=== PATIENT | female | born 1965 | race Caucasian/White ===

== ENCOUNTER 2017-07-20 01:54 | Emergency (ER) | payer SELFPAY ==
[~2017-07-20] VITALS: Ht 157.5 cm; Wt 85.0 kg
[~2017-07-20 01:54] MED LIST: CIPR500T4 PO
[2017-07-20 01:59] VITALS: BP 137/92; PULSE 94; RESP 16; TEMP 98.9; O2SAT 97
[2017-07-20 02:20] VITALS: BP 121/84; PULSE 88; RESP 16; O2SAT 98
[2017-07-20] MEDS ORDERED: PANTOPRAZOLE INJ 80 MG in SODIUM CHLORIDE 0.9% INJ 35 ML IV ONE (02:43)
[2017-07-20] MEDS ORDERED: SODIUM CHLORIDE 0.9% FLUSH 10 ML FLUSH IVF PRN (02:45)
[2017-07-20 03:25] VITALS: O2SAT 96
[2017-07-20 03:26] LABS: AUTOMATED NEUTROPHIL # 4.4 TH/MM3 (1.8-7.7); BASOPHIL # 0.1 TH/MM3 (0-0.2); BASOPHIL % 0.8 % (0.0-2.0); EOSINOPHIL # 0.2 TH/MM3 (0-0.4); EOSINOPHIL % 1.9 % (0.0-4.0); HEMATOCRIT 37.6 % (35.0-46.0); HEMO FLAGS DIFF FINAL; LYMPH % 36.8 % (9.0-44.0); MEAN CELL VOLUME 88.9 FL (80.0-100.0); MEAN CORPUSCULAR HEMOGLOBIN 30.6 PG (27.0-34.0); MEAN CORPUSCULAR HGB CONC 34.4 % (32.0-36.0); MONO % 6.2 % (0.0-8.0); NEUT % 54.3 % (16.0-70.0); PLATELET COUNT 233 TH/MM3 (150-450); RED BLOOD COUNT 4.23 MIL/MM3 (4.00-5.30); RED CELL DISTRIBUTION WIDTH 13.6 % (11.6-17.2); WHITE BLOOD COUNT 8.1 TH/MM3 (4.0-11.0)
[2017-07-20 03:33] LABS: APTT (PATIENT) 23.3 SEC (24.3-30.1); PROTHROMBIN TIME - PATIENT 9.9 SEC (9.8-11.6)
[2017-07-20 03:40] LABS: BLOOD, URINE NEG (NEG); COMMENT (UR) CULT NOT INDICATED; CULTURE IF INDICATED CULT NOT INDICATED; GLUCOSE,URINE 1000 mg/dL (NEG); KETONE, URINE TRACE mg/dL (NEG); MUCUS URINE FEW /lpf (OCC); NITRITE,URINE NEG (NEG); SQUAMOUS EPITHELIAL CELL URINE 2 /hpf (0-5); URINE COLOR YELLOW (YELLW/STRAW)
[2017-07-20 03:41] VITALS: BP 124/73; PULSE 76; RESP 16; O2SAT 96
[2017-07-20 03:44] LABS: ALT (GPT) 65 U/L (10-53); ANION GAP 10 MEQ/L (5-15); AST (GOT) 28 U/L (15-37); BICARBONATE 23.9 MEQ/L (21.0-32.0); BLOOD UREA NITROGEN 10 MG/DL (7-18); CHLORIDE 103 MEQ/L (98-107); GLOMERULAR FILTRATION RATE 80 ML/MIN (>89); POTASSIUM 3.9 MEQ/L (3.5-5.1); SODIUM (NA) 137 MEQ/L (136-145)
[2017-07-20 03:49] LABS: ALKALINE PHOSPHATASE 89 U/L (45-117); TOTAL BILIRUBIN ADULT 0.3 MG/DL (0.2-1.0)
[2017-07-20] MEDS ORDERED: IOHEXOL 350 MG/ML 10 ML VIAL (for RAD DIAG) IVCONTRAST ONE (04:28)
[2017-07-20 04:44] VITALS: BP 106/64; PULSE 77; RESP 16; O2SAT 96
--- NOTE | 2017-07-20 04:51 | PD ---
HPI Chief Complaint: Bleeding Time Seen by Provider: 02:08 Travel History International Travel<30 days: No Contact w/Intl Traveler<30days: No Traveled to known affect area: No History of Present Illness HPI Patient is a 52 year old female who comes in complaining of bleeding from her rectum. She says that when she wipes herself, she sees a large amount of clots. She also reports seeing blood in the toilet. This has been going on for about a week. She also has complaints of feeling "pinching" all over her body for the past 6 months. She also says she feels tired all the time. She has had some pain to the left side of her abdomen as well as her epigastric area. She denies nausea or vomiting. She denies palpitations or SOB. She denies dizziness. PFSH Past Medical History Diminished Hearing: Yes (DEAF) ?: Not Past Surgical History Hysterectomy: Yes (PARTIAL) Tonsillectomy: Yes Social History Alcohol Use: No Tobacco Use: No Substance Use: Yes (MARIJUANA) Allergies-Medications (Allergen,Severity, Reaction): Coded Allergies: Sulfa (Sulfonamide Antibiotics) (Unverified Allergy, Severe, 07/20/17) hives/sob Reported Meds & Prescriptions Reported Meds & Active Scripts Active Cipro (Ciprofloxacin HCl) 500 Mg Tab 500 Mg PO BID Review of Systems Except as stated in HPI: all other systems reviewed are Neg General / Constitutional: No: Fever, Chills Eyes: No: Blurred Vision HENT: No: Headaches, Lightheadedness Cardiovascular: Positive: Chest Pain or Discomfort Respiratory: No: Shortness of Breath Gastrointestinal: Positive: Abdominal Pain, Hematochezia, No: Nausea, Vomiting Genitourinary: No: Dysuria Musculoskeletal: No: Edema, Pain Skin: No Rash, No Hives, No Change in Pigmentation Neurologic: No: Weakness, Dizziness Physical Exam Narrative GENERAL: Awake and alert, in no acute distress. SKIN: Focused skin assessment warm/dry. HEAD: Atraumatic. Normocephalic. EYES: Pupils equal and round. No scleral icterus. No conjunctival pallor. ENT: Mucous membranes pink and moist. NECK: Trachea midline. No JVD. CARDIOVASCULAR: Regular rate and rhythm. No murmur appreciated. RESPIRATORY: No accessory muscle use. Clear to auscultation. Breath sounds equal bilaterally. GASTROINTESTINAL: Abdomen soft, non-tender, nondistended. Tender to palpation of the left side of the abdomen. RECTAL: No active bleed, nonthrombosed hemorrhoids. No fissures or masses. MUSCULOSKELETAL: No obvious deformities. No clubbing. No cyanosis. No edema. NEUROLOGICAL: Awake and alert. No obvious cranial nerve deficits. Motor grossly within normal limits. Normal speech. PSYCHIATRIC: Appropriate mood and affect; insight and judgment normal. Data Data Last Documented VS Vital Signs Date Time Temp Pulse Resp B/P (MAP) Pulse Ox O2 Delivery O2 Flow Rate FiO2 07/20/17 04:44 77 16 106/64 (78) 96 Room Air 07/20/17 01:59 98.9 Orders Orders Complete Blood Count With Diff (07/20/17 02:43) Comprehensive Metabolic Panel (07/20/17 02:43) Prothrombin Time / Inr (Pt) (07/20/17 02:43) Act Partial Throm Time (Ptt) (07/20/17 02:43) Urinalysis - C+S If Indicated (07/20/17 02:43) Type And Screen (07/20/17 02:43) Ecg Monitoring (07/20/17 02:43) Iv Access Insert/Monitor (07/20/17 02:43) Oximetry (07/20/17 02:43) Sodium Chloride 0.9% Flush (Ns Flush) (07/20/17 02:45) Sodium Chloride 0.9... W/Pantoprazole In (07/20/17 02:43) Troponin I (07/20/17 02:43) Ct Abd/Pel W Iv Contrast(Rout) (07/20/17 ) Iohexol 350 Inj (Omnipaque 350 Inj) (07/20/17 04:28) Sodium Chlor 0.9% 1000 Ml Inj (Ns 1000 M (07/20/17 05:00) Labs Laboratory Tests Test 07/20/17 02:56 07/20/17 03:23 White Blood Count 8.1 TH/MM3 Red Blood Count 4.23 MIL/MM3 Hemoglobin 12.9 GM/DL Hematocrit 37.6 % Mean Corpuscular Volume 88.9 FL Mean Corpuscular Hemoglobin 30.6 PG Mean Corpuscular Hemoglobin Concent 34.4 % Red Cell Distribution Width 13.6 % Platelet Count 233 TH/MM3 Mean Platelet Volume 9.0 FL Neutrophils (%) (Auto) 54.3 % Lymphocytes (%) (Auto) 36.8 % Monocytes (%) (Auto) 6.2 % Eosinophils (%) (Auto) 1.9 % Basophils (%) (Auto) 0.8 % Neutrophils # (Auto) 4.4 TH/MM3 Lymphocytes # (Auto) 3.0 TH/MM3 Monocytes # (Auto) 0.5 TH/MM3 Eosinophils # (Auto) 0.2 TH/MM3 Basophils # (Auto) 0.1 TH/MM3 CBC Comment DIFF FINAL Differential Comment Prothrombin Time 9.9 SEC Prothromb Time International Ratio 1.0 RATIO Activated Partial Thromboplast Time 23.3 SEC Blood Urea Nitrogen 10 MG/DL Creatinine 0.76 MG/DL Random Glucose 262 MG/DL Total Protein 7.7 GM/DL Albumin 4.0 GM/DL Calcium Level 8.7 MG/DL Alkaline Phosphatase 89 U/L Aspartate Amino Transf (AST/SGOT) 28 U/L Alanine Aminotransferase (ALT/SGPT) 65 U/L Total Bilirubin 0.3 MG/DL Sodium Level 137 MEQ/L Potassium Level 3.9 MEQ/L Chloride Level 103 MEQ/L Carbon Dioxide Level 23.9 MEQ/L Anion Gap 10 MEQ/L Estimat Glomerular Filtration Rate 80 ML/MIN Troponin I LESS THAN 0.02 NG/ML Urine Color YELLOW Urine Turbidity CLEAR Urine pH 5.0 Urine Specific [place] 1.037 Urine Protein NEG mg/dL Urine Glucose (UA) 1000 mg/dL Urine Ketones TRACE mg/dL Urine Occult Blood NEG Urine Nitrite NEG Urine Bilirubin NEG Urine Urobilinogen LESS THAN 2.0 MG/DL Urine Leukocyte Esterase NEG Urine WBC 1 /hpf Urine Squamous Epithelial Cells 2 /hpf Urine Mucus FEW /lpf Microscopic Urinalysis Comment CULT NOT INDICATED MDM Medical Decision Making Medical Screen Exam Complete: Yes Emergency Medical Condition: Yes Medical Record Reviewed: Yes Interpretation(s) ECG shows NSR at 77, no ST elevation or depression, normal intervals. Differential Diagnosis Bleeding hemorrhoid versus colitis versus diverticulitis versus diverticulosis Narrative Course Patient is a 52-year-old female comes in complaining of blood in her stool. Exam shows no active bleeding. IV established, labs sent. Hemoglobin is 12.9. Patient given a dose of Protonix. Labs do show that her blood sugars is 262. Patient is likely a diabetic, and this explains why she is feeling tired all the time. Patient advised she likely needs to be on medication for diabetes. Last 24 hours Impressions Abdomen/Pelvis CT 07/20/17 0000 Signed Impressions: Service Date/Time: Thursday, July 20, 2017 04:07 - CONCLUSION: 1. Bernarda appearance to the mesentery suggesting mesenteric inflammation. 2. Steatosis and hepatomegaly without solid lesion.. Duncan Francisco MD Patient informed of her results. Advised she should start Metformin. Given information about Diabetes. Blood likely from a hemorrhoid. Patient advised she does not have any bleeding currently. Advised she needs to follow-up with gastroenterology or colonoscopy. Advised to follow-up in the is a clinic for new onset diabetes. Advised to return to the ED as needed for any worsening symptoms. Diagnosis Primary Impression: Hemorrhoids Qualified Codes: K64.9 - Unspecified hemorrhoids Additional Impression: New onset type 2 diabetes mellitus Referrals: Lupillo Paz MD call for appointment [facility] call for appointment Patient Instructions: General Instructions, Hemorrhoids (ED), Type 2 Diabetes in Adults (ED) Additional Instructions: Drink plenty of water. Follow-up with gastroenterology and a primary care doctor. Return to the ED as needed for any worsening symptoms. Scripts Metformin (Metformin) 500 Mg Tab 500 MG PO DAILY for Blood Sugar Management, #14 TAB 0 Refills With a meal Prov: Linda Velasco MD 07/20/17 Disposition: 01 DISCHARGE HOME Condition: Stable Linda Velasco MD Jul 20, 2017 04:51
[2017-07-20] MEDS ORDERED: SODIUM CHLOR 0.9% 1000 ML INJ 1,000 ML IV ONE (05:00)
--- NOTE | 2017-07-20 05:13 | RADRPT ---
EXAM DATE/TIME: 07/20/2017 04:07 [facility] COMPARISON: No previous studies available for comparison. INDICATIONS : Abdomen pain. IV CONTRAST: 88 cc Omnipaque 350 (iohexol) IV ORAL CONTRAST: No oral contrast ingested. RADIATION DOSE: 6.97 CTDIvol (mGy) MEDICAL HISTORY : None SURGICAL HISTORY : Hysterectomy. ENCOUNTER: Initial ACUITY: 1 day PAIN SCALE: 5/10 LOCATION: Bilateral abdomen TECHNIQUE: Volumetric scanning of the abdomen and pelvis was performed. Using automated exposure control and ad justment of the mA and/or kV according to patient size, radiation dose was kept as low as reasonably achievable to obtain optimal diagnostic quality images. DICOM format image data is available electro nically for review and comparison. FINDINGS: LOWER LUNGS: The visualized lower lungs are clear. LIVER: Moderate hepatomegaly with AP dimension of the liver measuring 18 cm. Diffuse steatosis of the liver . 2.2 cm smooth margined hypodense lesion in the lateral segment of the left lobe, mean CT density o f 8 Hounsfield units, characteristic of a cyst. No solid lesions seen. No calcified gallstones. SPLEEN: Normal size without lesion. PANCREAS: Within normal limits. KIDNEYS: Normal in size and shape. There is no mass, stone or hydronephrosis. ADRENAL GLANDS: Within normal limits. VASCULAR: There is no aortic aneurysm. BOWEL/MESENTERY: No dilated loops of small or large bowel. The appendix is identified in the right lower quadrant has a normal appearance. There is minimal induration of the central mesenteric fat suggesting inflammat ory mesenteric process. ABDOMINAL WALL: Within normal limits. RETROPERITONEUM: There is no lymphadenopathy. BLADDER: No wall thickening or mass. REPRODUCTIVE: Within normal limits. INGUINAL: There is no lymphadenopathy or hernia. MUSCULOSKELETAL: Within normal limits for patient age. CONCLUSION: 1. Bernarda appearance to the mesentery suggesting mesenteric inflammation. 2. Steatosis and hepatomegaly without solid lesion.. Duncan Francisco MD on July 20, 2017 at 5:07 Board Certified Radiologist. This report was verified electronically.
[2017-07-20] MEDS ORDERED: METF500T PO (06:03)
[2017-07-20 06:38] VITALS: BP 119/81; PULSE 86; RESP 16
--- NOTE | 2017-07-20 15:08 | EKG ---
Date Performed: 07/20/2017 Time Performed: 02:43:04 PTAGE: 52 years EKG: Sinus rhythm POSSIBLE LEFT ATRIAL ENLARGEMENT BORDERLINE LEFT AXIS DEVIATION LOW QRS VOLTAGE IN PRECORDIAL LEADS BORDERLINE ECG NO PREVIOUS TRACING DOCTOR: Waldemar Villalobos Interpretating Date/Time 07/20/2017 15:08:09
== END 2017-07-20 06:45 | disposition home or self-care (01) ==
LOC: NEPE 01:54
DX: K64.9 Unspecified hemorrhoids (principal); E11.9 Type 2 diabetes mellitus without complications; K76.0 Fatty (change of) liver, not elsewhere classified; R16.0 Hepatomegaly, not elsewhere classified; Z88.2 Allergy status to sulfonamides
CPT/HCPCS: 74177; 80053; 81001; 84484; 85025; 85610; 85730; 86850; 86900; 86901; 93005; 96365; 99285; C9113; J7030; Q9967

== ENCOUNTER 2017-08-09 12:50 | Emergency (ER) | payer SELFPAY ==
[~2017-08-09 12:50] MED LIST changes: +METF500T PO
[2017-08-09 12:52] VITALS: BP 127/91; PULSE 77; RESP 13; TEMP 98.9; O2SAT 98
[2017-08-09 13:31] LABS: BASOPHIL % 0.6 % (0.0-2.0); EOSINOPHIL # 0.1 TH/MM3 (0-0.4); EOSINOPHIL % 1.7 % (0.0-4.0); HEMATOCRIT 40.9 % (35.0-46.0); HEMOGLOBIN 13.2 GM/DL (11.6-15.3); LYMPH % 25.6 % (9.0-44.0); LYMPHOCYTE # 1.9 TH/MM3 (1.0-4.8); MEAN CELL VOLUME 90.3 FL (80.0-100.0); MEAN CORPUSCULAR HEMOGLOBIN 29.1 PG (27.0-34.0); MEAN CORPUSCULAR HGB CONC 32.2 % (32.0-36.0); MEAN PLATELET VOLUME 8.8 FL (7.0-11.0); MONO % 4.8 % (0.0-8.0); MONOCYTE # 0.4 TH/MM3 (0-0.9); NEUT % 67.3 % (16.0-70.0); PLATELET COUNT 255 TH/MM3 (150-450); RED BLOOD COUNT 4.53 MIL/MM3 (4.00-5.30); RED CELL DISTRIBUTION WIDTH 14.1 % (11.6-17.2); WHITE BLOOD COUNT 7.5 TH/MM3 (4.0-11.0)
[2017-08-09 13:41] LABS: BILIRUBIN, URINE NEG (NEG); BLOOD, URINE NEG (NEG); GLUCOSE,URINE 1000 mg/dL (NEG); KETONE, URINE 10 mg/dL (NEG); NITRITE,URINE NEG (NEG); SQUAMOUS EPITHELIAL CELL URINE 1 /hpf (0-5); URINE COLOR LIGHT-YELLOW (YELLW/STRAW); URINE LEUKOCYTE ESTERASE NEG (NEG)
[2017-08-09 13:43] LABS: ALKALINE PHOSPHATASE 95 U/L (45-117); TOTAL BILIRUBIN ADULT 0.2 MG/DL (0.2-1.0); TOTAL PROTEIN 7.4 GM/DL (6.4-8.2)
[2017-08-09 13:48] LABS: ALBUMIN 3.7 GM/DL (3.4-5.0); ALT (GPT) 80 U/L (10-53); AST (GOT) 43 U/L (15-37); BICARBONATE 21.8 MEQ/L (21.0-32.0); BLOOD UREA NITROGEN 9 MG/DL (7-18); CALCIUM 8.7 MG/DL (8.5-10.1); CHLORIDE 104 MEQ/L (98-107); CREATININE 0.82 MG/DL (0.50-1.00); GLOMERULAR FILTRATION RATE 73 ML/MIN (>89); GLUCOSE,RANDOM 290 MG/DL (74-106); LIPASE 193 U/L (73-393); SODIUM (NA) 136 MEQ/L (136-145)
--- NOTE | 2017-08-09 14:32 | PD ---
HPI Chief Complaint: Flank/Kidney Pain Time Seen by Provider: 14:21 Travel History International Travel<30 days: No Contact w/Intl Traveler<30days: No Traveled to known affect area: No History of Present Illness HPI 52-year-old female presents the emergency department with recurrent right flank and abdominal pain over the past 2 weeks. Patient was seen 2 weeks ago, and felt to have hemorrhoids, as well as new onset diabetes. Patient relates that she started taking metformin 500 mg daily which seemed to cause abdominal discomfort and cramping. Patient denies any significant fever, urinary symptoms, burning with urination, nausea, vomiting, or changes in her bowels. She states she stopped taking the metformin when she went to [place], and the symptoms improved, she started taking her medication again recently and her symptoms recurred. Pain is about a 6 out of 10. It is not worse with movement. It is not significantly worse with food. Patient's only abdominal surgery is a partial hysterectomy. She still has her appendix and gallbladder. She is allergic to sulfa. [facility] Past Medical History Diminished Hearing: Yes (DEAF) Past Surgical History Hysterectomy: Yes Tonsillectomy: Yes Social History Alcohol Use: No Tobacco Use: No Substance Use: Yes (MARIJUANA) Allergies-Medications (Allergen,Severity, Reaction): Coded Allergies: Sulfa (Sulfonamide Antibiotics) (Verified Allergy, Severe, 08/09/17) hives/sob Reported Meds & Prescriptions Reported Meds & Active Scripts Active Metformin (Metformin HCl) 500 Mg Tab 500 Mg PO DAILY With a meal Review of Systems Except as stated in HPI: all other systems reviewed are Neg General / Constitutional: No: Fever, Chills Eyes: No: Visual changes HENT: No: Headaches Cardiovascular: No: Chest Pain or Discomfort Respiratory: No: Shortness of Breath Gastrointestinal: Positive: Abdominal Pain, No: Nausea, Vomiting, Diarrhea, Constipation, Indigestion, Dysphagia, Loss of Appetite Genitourinary: No: Dysuria Musculoskeletal: No: Pain Skin: No Rash Neurologic: No: Weakness Psychiatric: No: Depression Endocrine: No: Polydipsia Hematologic/Lymphatic: No: Easy Bruising Physical Exam Narrative GENERAL: Patient appears in no acute distress. She is able sore to the room. She is able to sit and lay down without difficulty. SKIN: Warm and dry. Color. Normal turgor. No rash. HEAD: Atraumatic. Normocephalic. EYES: Pupils equal and round. No scleral icterus. No injection or drainage. ENT: No nasal bleeding or discharge. Mucous membranes pink and moist. Pharynx is clear. Airway is patent. NECK: Trachea midline. Supple and nontender. CARDIOVASCULAR: Regular rate and rhythm. RESPIRATORY: No accessory muscle use. Clear to auscultation. Breath sounds equal bilaterally. GASTROINTESTINAL: Abdomen soft, mild nonspecific tenderness in the right abdominal area, without specific point tenderness. No McBurney's point. Nondistended. Hepatic and splenic margins not palpable. No CVA tenderness to palpation. MUSCULOSKELETAL: Extremities without clubbing, cyanosis, or edema. No obvious deformities. NEUROLOGICAL: Awake and alert. No obvious cranial nerve deficits. Motor grossly within normal limits. Five out of 5 muscle strength in the arms and legs. Normal speech. PSYCHIATRIC: Appropriate mood and affect; insight and judgment normal. Data Data Last Documented VS Vital Signs Date Time Temp Pulse Resp B/P (MAP) Pulse Ox O2 Delivery O2 Flow Rate FiO2 08/09/17 14:56 67 15 97 Room Air 08/09/17 12:52 98.9 Orders Orders Complete Blood Count With Diff (08/09/17 13:03) Comprehensive Metabolic Panel (08/09/17 13:03) Urinalysis - C+S If Indicated (08/09/17 13:03) Lipase (08/09/17 13:03) Iv Access Insert/Monitor (08/09/17 14:50) Ecg Monitoring (08/09/17 14:50) Oximetry (08/09/17 14:50) Sodium Chloride 0.9% Flush (Ns Flush) (08/09/17 15:00) Ketorolac Inj (Toradol Inj) (08/09/17 15:00) Lactic Acid (08/09/17 14:55) Ct Abd/Pel W/O Iv Contrast (08/09/17 15:21) Labs Laboratory Tests Test 08/09/17 13:10 08/09/17 13:20 08/09/17 15:00 Urine Color LIGHT-YELLOW Urine Turbidity CLEAR Urine pH 5.0 Urine Specific [place] 1.029 Urine Protein NEG mg/dL Urine Glucose (UA) 1000 mg/dL Urine Ketones 10 mg/dL Urine Occult Blood NEG Urine Nitrite NEG Urine Bilirubin NEG Urine Urobilinogen LESS THAN 2.0 MG/DL Urine Leukocyte Esterase NEG Urine RBC LESS THAN 1 /hpf Urine WBC LESS THAN 1 /hpf Urine Squamous Epithelial Cells 1 /hpf Microscopic Urinalysis Comment CULT NOT INDICATED White Blood Count 7.5 TH/MM3 Red Blood Count 4.53 MIL/MM3 Hemoglobin 13.2 GM/DL Hematocrit 40.9 % Mean Corpuscular Volume 90.3 FL Mean Corpuscular Hemoglobin 29.1 PG Mean Corpuscular Hemoglobin Concent 32.2 % Red Cell Distribution Width 14.1 % Platelet Count 255 TH/MM3 Mean Platelet Volume 8.8 FL Neutrophils (%) (Auto) 67.3 % Lymphocytes (%) (Auto) 25.6 % Monocytes (%) (Auto) 4.8 % Eosinophils (%) (Auto) 1.7 % Basophils (%) (Auto) 0.6 % Neutrophils # (Auto) 5.0 TH/MM3 Lymphocytes # (Auto) 1.9 TH/MM3 Monocytes # (Auto) 0.4 TH/MM3 Eosinophils # (Auto) 0.1 TH/MM3 Basophils # (Auto) 0.0 TH/MM3 CBC Comment DIFF FINAL Differential Comment Blood Urea Nitrogen 9 MG/DL Creatinine 0.82 MG/DL Random Glucose 290 MG/DL Total Protein 7.4 GM/DL Albumin 3.7 GM/DL Calcium Level 8.7 MG/DL Alkaline Phosphatase 95 U/L Aspartate Amino Transf (AST/SGOT) 43 U/L Alanine Aminotransferase (ALT/SGPT) 80 U/L Total Bilirubin 0.2 MG/DL Sodium Level 136 MEQ/L Potassium Level 4.0 MEQ/L Chloride Level 104 MEQ/L Carbon Dioxide Level 21.8 MEQ/L Anion Gap 10 MEQ/L Estimat Glomerular Filtration Rate 73 ML/MIN Lipase 193 U/L Lactic Acid Level 1.6 mmol/L [facility] Medical Decision Making Medical Screen Exam Complete: Yes Emergency Medical Condition: Yes Medical Record Reviewed: Yes Differential Diagnosis Abdominal pain. Medication reaction. Mesenteric inflammation seen on CT a previous visit. Gallbladder disease. Hepatitis. Renal colic. Narrative Course Labs ordered and triage including CBC, CMP, and urinalysis are all markedly normal except for random glucose of 290, and slightly elevated LFTs AST of 43, ALT 80. Urinalysis shows greater than 1000 glucose, and 10 ketones. Patient discussed with Dr. Ames who examines the patient as well. Lactic acid is ordered as well. This was normal. CT of the abdomen showed a nonobstructing stone in the right kidney but otherwise no significant findings. Patient is felt stable for discharge home. Patient is recommended to continue her Glucophage 500 mg daily as previously prescribed. Pain is felt to be more muscle skeletal versus a medication reaction. She has trialed on meloxicam 7.5 mg twice a day when necessary pain. Patient is to follow-up with a local primary care physician as soon as possible to ensure improvement, and to monitor improvement in her type 2 diabetes.. GI consult might be warranted if symptoms continue. Diagnosis Primary Impression: Abdominal pain Qualified Codes: R10.11 - Right upper quadrant pain Referrals: [facility] Primary Care PO Patient Instructions: Abdominal Pain (ED), General Instructions Additional Instructions: CT of the abdomen showed a nonobstructing stone in the right kidney but otherwise no significant findings. Patient is felt stable for discharge home. Patient is recommended to continue her Glucophage 500 mg daily as previously prescribed. Pain is felt to be more muscle skeletal versus a medication reaction. She has trialed on meloxicam 7.5 mg twice a day when necessary pain. Patient is to follow-up with a local primary care physician as soon as possible to ensure improvement, and to monitor improvement in her type 2 diabetes.. GI consult might be warranted if symptoms continue. Med/Other Pt SpecificInfo: Prescription(s) given Condition: Stable Nikhil Negron Aug 09, 2017 14:32
[2017-08-09 14:56] VITALS: PULSE 67; RESP 15; O2SAT 97
[2017-08-09] MEDS ORDERED: SODIUM CHLORIDE 0.9% FLUSH 10 ML FLUSH IV FLUSH PRN (15:00)
[2017-08-09] MEDS ORDERED: KETOROLAC TROMETHAMINE 30 MG/ML (IVP) VIAL IVP ONE (15:00)
--- NOTE | 2017-08-09 16:14 | RADRPT ---
EXAM DATE/TIME: 08/09/2017 15:44 [facility] COMPARISON: No previous studies available for comparison. INDICATIONS : Right flank plain ORAL CONTRAST: No oral contrast ingested. RADIATION DOSE: 14.39 CTDIvol (mGy) MEDICAL HISTORY : Diabetes SURGICAL HISTORY : Tonsillectomy. Hysterectomy. ENCOUNTER: Initial ACUITY: 2 weeks PAIN SCALE: 10/10 LOCATION: Right flank TECHNIQUE: Volumetric scanning of the abdomen and pelvis was performed. Using automated exposure control and ad justment of the mA and/or kV according to patient size, radiation dose was kept as low as reasonably achievable to obtain optimal diagnostic quality images. DICOM format image data is available electro nically for review and comparison. FINDINGS: CT Abdomen: The spleen, pancreas, left kidney, adrenals are unremarkable. Approximate 3-4 mm nonobstr ucting stone is present in the right kidney. There is no evidence for any appreciable pathological ad enopathy, free fluid, or bowel obstruction. There is no ureteral stone and there is no hydronephrosis on either side. There is slight lingular atelectasis and/or infiltrate. The liver is fatty without focal lesions or technique. CT pelvis: There is an approximate 2.3 cm simple cyst in the left ovary. CONCLUSION: 1. Fatty liver. 2. Tiny nonobstructing stone in the right kidney. 3. Lingula atelectasis and/or infiltrate. Hayden Manzano MD on August 09, 2017 at 16:07 Board Certified Radiologist. This report was verified electronically.
[2017-08-09] MEDS ORDERED: MELO7.5T27 PO (16:35)
--- NOTE | 2017-08-09 16:37 | PD ---
Data Data Last Documented VS Vital Signs Date Time Temp Pulse Resp B/P (MAP) Pulse Ox O2 Delivery O2 Flow Rate FiO2 08/09/17 14:56 67 15 97 Room Air 08/09/17 12:52 98.9 Orders Orders Complete Blood Count With Diff (08/09/17 13:03) Comprehensive Metabolic Panel (08/09/17 13:03) Urinalysis - C+S If Indicated (08/09/17 13:03) Lipase (08/09/17 13:03) Iv Access Insert/Monitor (08/09/17 14:50) Ecg Monitoring (08/09/17 14:50) Oximetry (08/09/17 14:50) Sodium Chloride 0.9% Flush (Ns Flush) (08/09/17 15:00) Ketorolac Inj (Toradol Inj) (08/09/17 15:00) Lactic Acid (08/09/17 14:55) Ct Abd/Pel W/O Iv Contrast (08/09/17 15:21) Labs Laboratory Tests Test 08/09/17 13:10 08/09/17 13:20 08/09/17 15:00 Urine Color LIGHT-YELLOW Urine Turbidity CLEAR Urine pH 5.0 Urine Specific [place] 1.029 Urine Protein NEG mg/dL Urine Glucose (UA) 1000 mg/dL Urine Ketones 10 mg/dL Urine Occult Blood NEG Urine Nitrite NEG Urine Bilirubin NEG Urine Urobilinogen LESS THAN 2.0 MG/DL Urine Leukocyte Esterase NEG Urine RBC LESS THAN 1 /hpf Urine WBC LESS THAN 1 /hpf Urine Squamous Epithelial Cells 1 /hpf Microscopic Urinalysis Comment CULT NOT INDICATED White Blood Count 7.5 TH/MM3 Red Blood Count 4.53 MIL/MM3 Hemoglobin 13.2 GM/DL Hematocrit 40.9 % Mean Corpuscular Volume 90.3 FL Mean Corpuscular Hemoglobin 29.1 PG Mean Corpuscular Hemoglobin Concent 32.2 % Red Cell Distribution Width 14.1 % Platelet Count 255 TH/MM3 Mean Platelet Volume 8.8 FL Neutrophils (%) (Auto) 67.3 % Lymphocytes (%) (Auto) 25.6 % Monocytes (%) (Auto) 4.8 % Eosinophils (%) (Auto) 1.7 % Basophils (%) (Auto) 0.6 % Neutrophils # (Auto) 5.0 TH/MM3 Lymphocytes # (Auto) 1.9 TH/MM3 Monocytes # (Auto) 0.4 TH/MM3 Eosinophils # (Auto) 0.1 TH/MM3 Basophils # (Auto) 0.0 TH/MM3 CBC Comment DIFF FINAL Differential Comment Blood Urea Nitrogen 9 MG/DL Creatinine 0.82 MG/DL Random Glucose 290 MG/DL Total Protein 7.4 GM/DL Albumin 3.7 GM/DL Calcium Level 8.7 MG/DL Alkaline Phosphatase 95 U/L Aspartate Amino Transf (AST/SGOT) 43 U/L Alanine Aminotransferase (ALT/SGPT) 80 U/L Total Bilirubin 0.2 MG/DL Sodium Level 136 MEQ/L Potassium Level 4.0 MEQ/L Chloride Level 104 MEQ/L Carbon Dioxide Level 21.8 MEQ/L Anion Gap 10 MEQ/L Estimat Glomerular Filtration Rate 73 ML/MIN Lipase 193 U/L Lactic Acid Level 1.6 mmol/L MDM Supervised Visit with DIMA: Yes Narrative Course The history, exam, and medical decision-making in the associated midlevel provider note were completed with my assistance. I reviewed and agree with the findings presented. I attest that I had a [id number] encounter with the patient on the same day, and personally performed and documented my assessment and findings in the medical record. *My assessment and Findings: This is a 52-year-old female who presents to the emergency department with right sided abdominal pain that radiates to the back. She describes it as a burning and numbness. History was obtained via video director data processing. She has no other constitutional complaints. Labs are reassuring. She says the pain is gotten much worse and she was prescribed metformin on her last visit for her diabetes. CT scan was repeated as the patient says that this pain is new. It Demonstrates no etiology of her symptoms. Her exam is very benign. I suspect her pain may be radicular from her thoracic spine as her abdomen is not very tender. I also recommended that she have an outpatient colonoscopy done as she had some mesenteric inflammation on her last CT scan. Patient will be discharged home and I think she is appropriate for outpatient follow-up. Diagnosis Primary Impression: Abdominal pain Qualified Codes: R10.11 - Right upper quadrant pain Referrals: [facility] PO Patient Instructions: General Instructions, Abdominal Pain (ED) Additional Instruction: CT of the abdomen showed a nonobstructing stone in the right kidney but otherwise no significant findings. Patient is felt stable for discharge home. Patient is recommended to continue her Glucophage 500 mg daily as previously prescribed. Pain is felt to be more muscle skeletal versus a medication reaction. She has trialed on meloxicam 7.5 mg twice a day when necessary pain. Patient is to follow-up with a local primary care physician as soon as possible to ensure improvement, and to monitor improvement in her type 2 diabetes.. GI consult might be warranted if symptoms continue. Condition: Stable Shanice Ames MD Aug 09, 2017 16:37
== END 2017-08-09 16:57 | disposition home or self-care (01) ==
LOC: NEPD 12:50
DX: R10.11 Right upper quadrant pain (principal); E11.9 Type 2 diabetes mellitus without complications; Z79.84 Long term (current) use of oral hypoglycemic drugs
CPT/HCPCS: 74176; 80053; 81001; 83605; 83690; 85025; 96374; 99285; J1885

== ENCOUNTER 2017-08-22 01:59 | Emergency (ER) | payer SELFPAY ==
[~2017-08-22] VITALS: Ht 157.5 cm; Wt 80.0 kg
[~2017-08-22 01:59] MED LIST changes: -CIPR500T4 PO; +MELO7.5T27 PO
[2017-08-22 02:01] VITALS: BP 135/97; PULSE 66; RESP 16; TEMP 98.7; O2SAT 98
[2017-08-22 02:56] LABS: AUTOMATED NEUTROPHIL # 4.9 TH/MM3 (1.8-7.7); BASOPHIL # 0.1 TH/MM3 (0-0.2); BASOPHIL % 1.1 % (0.0-2.0); EOSINOPHIL # 0.1 TH/MM3 (0-0.4); EOSINOPHIL % 1.5 % (0.0-4.0); HEMATOCRIT 39.1 % (35.0-46.0); HEMOGLOBIN 13.2 GM/DL (11.6-15.3); LYMPH % 28.7 % (9.0-44.0); LYMPHOCYTE # 2.3 TH/MM3 (1.0-4.8); MEAN CELL VOLUME 88.3 FL (80.0-100.0); MEAN CORPUSCULAR HEMOGLOBIN 29.9 PG (27.0-34.0); MEAN CORPUSCULAR HGB CONC 33.9 % (32.0-36.0); MEAN PLATELET VOLUME 8.4 FL (7.0-11.0); MONO % 7.3 % (0.0-8.0); MONOCYTE # 0.6 TH/MM3 (0-0.9); NEUT % 61.4 % (16.0-70.0); PLATELET COUNT 269 TH/MM3 (150-450); RED BLOOD COUNT 4.43 MIL/MM3 (4.00-5.30); RED CELL DISTRIBUTION WIDTH 13.7 % (11.6-17.2)
--- NOTE | 2017-08-22 03:05 | RADRPT ---
EXAM DATE/TIME: 08/22/2017 02:49 [place] COMPARISON: No previous studies available for comparison. INDICATIONS : Short of breath. MEDICAL HISTORY : None. SURGICAL HISTORY : None. ENCOUNTER: Initial ACUITY: 1 day PAIN SCORE: 0/10 LOCATION: Bilateral chest FINDINGS: A single view of the chest demonstrates the lungs to be symmetrically aerated without evidence of mas s, infiltrate or effusion. The cardiomediastinal contours are unremarkable. Osseous structures are intact. CONCLUSION: No acute disease. Chuckie Mcadams MD on August 22, 2017 at 3:02 Board Certified Radiologist. This report was verified electronically.
[2017-08-22 03:08] VITALS: BP 180/89; PULSE 58; RESP 15; O2SAT 98
[2017-08-22 03:15] LABS: ALBUMIN 3.6 GM/DL (3.4-5.0); ALT (GPT) 46 U/L (10-53); AST (GOT) 23 U/L (15-37); BICARBONATE 23.6 MEQ/L (21.0-32.0); BLOOD UREA NITROGEN 14 MG/DL (7-18); C-REACTIVE PROTEIN 0.73 MG/DL (0.00-0.30); CALCIUM 8.2 MG/DL (8.5-10.1); CHLORIDE 105 MEQ/L (98-107); CREATININE 0.77 MG/DL (0.50-1.00); GLOMERULAR FILTRATION RATE 79 ML/MIN (>89); GLUCOSE,RANDOM 210 MG/DL (74-106); LIPASE 280 U/L (73-393); SODIUM (NA) 137 MEQ/L (136-145)
[2017-08-22 03:16] LABS: ALKALINE PHOSPHATASE 73 U/L (45-117); TOTAL BILIRUBIN ADULT 0.1 MG/DL (0.2-1.0); TOTAL PROTEIN 7.3 GM/DL (6.4-8.2)
--- NOTE | 2017-08-22 03:20 | PD ---
HPI Chief Complaint: Abdominal Pain Time Seen by Provider: 02:24 Travel History International Travel<30 days: No Contact w/Intl Traveler<30days: No Traveled to known affect area: No History of Present Illness HPI The patient is a 52 year old female who presents to the [facility] emergency department with a history of right-sided flank pain that radiates down into the right lower quadrant of the abdomen and began reportedly a month ago. The patient reports that the pain seems to come and go, however it worsened again last night. She reports that she has associated dysuria with urinary frequency and urgency. She denies having any known fevers. She reports having nausea without vomiting. She denies having any diarrhea. The patient has a history of being diagnosed with diabetes, however she ran out of her Glucophage and has not been on this recently. The patient reports that she does have a history of kidney stones. The patient reports that she's had 2 CAT scans done recently related to the symptoms, the most recent was in August of this year done at this facility. She denies having a primary care physician. Otherwise on review of systems, she denies having any cough, congestion, neck pain, chest pain, shortness of breath, abdominal pain, diarrhea, or neurologic symptoms. [facility] Past Medical History Narrative Medical The patient's past medical history is significant for diabetes, reported history of kidney stones, history of being deaf. Diabetes: Yes Patient Takes Glucophage: No Diminished Hearing: Yes (DEAF) Reproductive: Yes Influenza Vaccination: No ?: Not Past Surgical History Narrative Surgical The patient's past surgical history is significant for tonsillectomy and a hysterectomy. Hysterectomy: Yes Tonsillectomy: Yes Social History Alcohol Use: No Tobacco Use: No Substance Use: Yes (MARIJUANA) Allergies-Medications (Allergen,Severity, Reaction): Coded Allergies: Sulfa (Sulfonamide Antibiotics) (Verified Allergy, Severe, 08/22/17) hives/sob Reported Meds & Prescriptions Reported Meds & Active Scripts Active Meloxicam 7.5 Mg Tab 7.5 Mg PO BID Metformin (Metformin HCl) 500 Mg Tab 500 Mg PO DAILY With a meal Review of Systems Except as stated in HPI: all other systems reviewed are Neg General / Constitutional: No: Fever, Chills Eyes: No: Visual changes HENT: No: Headaches Cardiovascular: No: Chest Pain or Discomfort Respiratory: No: Shortness of Breath Gastrointestinal: Positive: Nausea, Abdominal Pain, No: Vomiting, Diarrhea, Changes in Bowel Habits, Indigestion, Loss of Appetite Genitourinary: Positive: Urgency, Frequency, Dysuria, Flank Pain Musculoskeletal: No: Pain Skin: No Rash Neurologic: No: Weakness, Focal Abnormalities, Change in Mentation, Slurred Speech, Sensory Disturbance Psychiatric: No: Depression Endocrine: No: Polydipsia Hematologic/Lymphatic: No: Easy Bruising Physical Exam Narrative General: The patient is a well-developed well-nourished female in no acute distress. Head and Neck exam: Head is normocephalic atraumatic. Eyes: EOMI, pupils are equal round and reactive to light. Nose: Midline septum with pink mucous membranes Mouth: Dentition unremarkable. Moist mucus membranes. Posterior oropharynx is not erythematous. No tonsillar hypertrophy. Uvula midline. Airway patent. Neck: No palpable lymphadenopathy. No nuchal rigidity. No thyromegaly. Cardiovascular: Regular rate and rhythm without murmurs, gallops, or rubs. Lungs: Clear to auscultation bilaterally. No wheezes, rhonchi, or rales. Abdomen: Soft, without tenderness to palpation in all 4 quadrants of the abdomen. No guarding, rebound, or rigidity. Normal bowel sounds are audible. No tenderness on palpation of McBurney's point. Negative Mcpherson sign. Extremities: No clubbing, cyanosis, or edema. 2+ pulses in all 4 extremities. No calf tenderness on palpation. Back: No spinous process tenderness to palpation. The patient has no CVA tenderness on palpation. Neurologic Exam: Grossly nonfocal. Skin Exam: No rash noted. Intact skin that is warm and dry. Data Data Last Documented VS Vital Signs Date Time Temp Pulse Resp B/P (MAP) Pulse Ox O2 Delivery O2 Flow Rate FiO2 08/22/17 05:33 53 17 165/87 (113) 96 Room Air 08/22/17 02:01 98.7 Orders Orders Complete Blood Count With Diff (08/22/17 02:25) Comprehensive Metabolic Panel (08/22/17 02:25) C-Reactive Protein (Crp) (08/22/17 02:25) Lipase (08/22/17 02:25) Chest, Single Ap (08/22/17 02:25) Iv Access Insert/Monitor (08/22/17 02:25) Ecg Monitoring (08/22/17 02:25) Oximetry (08/22/17 02:25) Urinalysis - C+S If Indicated (08/22/17 04:31) Ketorolac Inj (Toradol Inj) (08/22/17 05:00) Phenazopyridine (Pyridium) (08/22/17 05:00) Sodium Chlor 0.9% 1000 Ml Inj (Ns 1000 M (08/22/17 05:00) Ceftriaxone Inj (Rocephin Inj) (08/22/17 05:00) Ondansetron Inj (Zofran Inj) (08/22/17 05:30) Ed Discharge Order (08/22/17 05:47) Labs Laboratory Tests Test 08/22/17 02:40 08/22/17 04:00 White Blood Count 8.0 TH/MM3 Red Blood Count 4.43 MIL/MM3 Hemoglobin 13.2 GM/DL Hematocrit 39.1 % Mean Corpuscular Volume 88.3 FL Mean Corpuscular Hemoglobin 29.9 PG Mean Corpuscular Hemoglobin Concent 33.9 % Red Cell Distribution Width 13.7 % Platelet Count 269 TH/MM3 Mean Platelet Volume 8.4 FL Neutrophils (%) (Auto) 61.4 % Lymphocytes (%) (Auto) 28.7 % Monocytes (%) (Auto) 7.3 % Eosinophils (%) (Auto) 1.5 % Basophils (%) (Auto) 1.1 % Neutrophils # (Auto) 4.9 TH/MM3 Lymphocytes # (Auto) 2.3 TH/MM3 Monocytes # (Auto) 0.6 TH/MM3 Eosinophils # (Auto) 0.1 TH/MM3 Basophils # (Auto) 0.1 TH/MM3 CBC Comment DIFF FINAL Differential Comment Blood Urea Nitrogen 14 MG/DL Creatinine 0.77 MG/DL Random Glucose 210 MG/DL Total Protein 7.3 GM/DL Albumin 3.6 GM/DL Calcium Level 8.2 MG/DL Alkaline Phosphatase 73 U/L Aspartate Amino Transf (AST/SGOT) 23 U/L Alanine Aminotransferase (ALT/SGPT) 46 U/L Total Bilirubin 0.1 MG/DL Sodium Level 137 MEQ/L Potassium Level 4.1 MEQ/L Chloride Level 105 MEQ/L Carbon Dioxide Level 23.6 MEQ/L Anion Gap 8 MEQ/L Estimat Glomerular Filtration Rate 79 ML/MIN C-Reactive Protein 0.73 MG/DL Lipase 280 U/L Urine Color YELLOW Urine Turbidity HAZY Urine pH 5.5 Urine Specific [place] 1.036 Urine Protein TRACE mg/dL Urine Glucose (UA) 1000 mg/dL Urine Ketones TRACE mg/dL Urine Occult Blood SMALL Urine Nitrite NEG Urine Bilirubin NEG Urine Urobilinogen LESS THAN 2.0 MG/DL Urine Leukocyte Esterase NEG Urine RBC 13 /hpf Urine WBC 4 /hpf Urine Squamous Epithelial Cells 10 /hpf Urine Calcium Oxalate Crystals OCC /hpf Urine Bacteria OCC /hpf Urine Mucus FEW /lpf Microscopic Urinalysis Comment CULT NOT INDICATED MDM Medical Decision Making Medical Screen Exam Complete: Yes Emergency Medical Condition: Yes Medical Record Reviewed: Yes Interpretation(s) Last Impressions Chest X-Ray 08/22/17 0225 Signed Impressions: Service Date/Time: Tuesday, August 22, 2017 02:49 - CONCLUSION: No acute disease. Chuckie Mcadams MD Differential Diagnosis Pyelonephritis, versus kidney stone, versus musculoskeletal strain, versus biliary colic Narrative Course During the course of the patients emergency department visit, the patients history, examination, and differential diagnosis were reviewed with the patient. The patient was placed on a front desk monitor with oximetry and frequent blood pressure monitoring. The patient had IV access obtained and blood work sent for analysis. The patient's electronic medical record was reviewed. The patient underwent CT scan of the abdomen and pelvis in July as well as earlier in the month at this facility. The patient's abdominal examination is benign at this time. The patient does however report having urinary frequency and is going to the restroom quite frequently on exam. The patient reports that she is out of the metformin that was previously prescribed. This could be contributing to the urinary frequency of her blood sugar is elevated. The patient was initially provided normal saline 1 L IV fluid bolus, Toradol 15 mg IV, Pyridium 200 mg by mouth for dysuria, Zofran 4 mg IV for nausea. The patients laboratory studies were reviewed and remarkable for a CBC that is within normal limits, CMP is remarkable for GFR 79, glucose 210, total bilirubin 0.1, calcium 8.2, C-reactive protein 0.73, lipase 280, urinalysis is remarkable for concentrated urine with a specific gravity 1.036, glucose 1000, ketones trace, small occult blood, 13 RBCs, 4 WBCs, occasional calcium oxalate crystals, occasional bacteria. The patient was given Rocephin 1 g IV. Radiology studies were reviewed and remarkable for a chest x-ray that shows no acute cardiopulmonary disease. As the patient's abdominal examination is benign, the risk outweighs the benefit of additional imaging and radiation to this patient as she recently had 2 CT scans done of the abdomen and pelvis. The patient was agreeable with this. The patient will be started back on her metformin. The patient was instructed regarding the importance of following up with the primary care physician. She is given information regarding the [facility] for follow-up. The patient additionally has symptoms of a urinary tract infection with bacteria and microscopic hematuria. The patient will be given a prescription for Cipro.The patient is resting comfortably and feels better, is alert and in no distress. The patients results and examination findings were discussed with the patient. The repeat examination is unremarkable and benign. The history, exam, diagnostic testing, and current condition do not suggest any significant pathology to warrant further testing, continued ED treatment, admission, or surgical evaluation at this point. The vital signs have been stable. The patient does not have uncontrollable pain, intractable vomiting, or other significant symptoms. The patient's condition is stable and appropriate for discharge. The patient will pursue further outpatient evaluation with a primary care physician or other designated or consulting physician as indicated in the discharge instructions. The patient expressed understanding and was agreeable with this plan. Diagnosis Primary Impression: Urinary tract infection Qualified Codes: N39.0 - Urinary tract infection, site not specified; R31.9 - Hematuria, unspecified Additional Impression: Kidney stone Referrals: Daniel Collins MD 1 week [facility] 2 days Primary Care Physician 2 days Patient Instructions: General Instructions, Kidney Stones (ED), Urinary Tract Infection in Women (ED) Med/Other Pt SpecificInfo: Prescription(s) given Scripts Hydrocodone-Acetaminophen (Hydrocodone-Acetaminophen) 5-325 mg Tab 1 TAB PO Q6H Y for PAIN, #10 TAB 0 Refills Prov: Shantelle Nuñez MD 08/22/17 Metformin (Metformin) 500 Mg Tab 500 MG PO BIDPC for Blood Sugar Management, #60 TAB 0 Refills Prov: Shantelle Nuñez MD 08/22/17 Ciprofloxacin (Cipro) 500 Mg Tab 500 MG PO BID for Infection, #14 TAB 0 Refills Prov: Shantelle Nuñez MD 08/22/17 Disposition: 01 DISCHARGE HOME Condition: Stable Shantelle Nuñez MD Aug 22, 2017 03:20
[2017-08-22 04:58] LABS: BACTERIA, URINE OCC /hpf; BILIRUBIN, URINE NEG (NEG); BLOOD, URINE SMALL (NEG); CALCIUM OXALATE CRYSTALS,URINE OCC /hpf; GLUCOSE,URINE 1000 mg/dL (NEG); KETONE, URINE TRACE mg/dL (NEG); MUCUS URINE FEW /lpf (OCC); NITRITE,URINE NEG (NEG); PH, URINE 5.5 (5.0-8.5); SQUAMOUS EPITHELIAL CELL URINE 10 /hpf (0-5); URINE COLOR YELLOW (YELLW/STRAW); URINE LEUKOCYTE ESTERASE NEG (NEG)
[2017-08-22] MEDS ORDERED: PHENAZOPYRIDINE HCL 200 MG TAB PO ONE (05:00)
[2017-08-22] MEDS ORDERED: cefTRIAXone INJ 1,000 MG in SODIUM CHLORIDE 0.9% INJ 100 ML IV ONE (05:00)
[2017-08-22] MEDS ORDERED: KETOROLAC TROMETHAMINE 30 MG/ML (IVP) VIAL IV PUSH ONE (05:00)
[2017-08-22] MEDS ORDERED: SODIUM CHLOR 0.9% 1000 ML INJ 1,000 ML IV ONE (05:00)
[2017-08-22] MEDS ORDERED: ONDANSETRON HCL 4 MG/2 ML VIAL IV ONE (05:30)
[2017-08-22 05:33] VITALS: BP 165/87; PULSE 53; RESP 17; O2SAT 96
[2017-08-22] MEDS ORDERED: CIPR-9 PO (05:52)
[2017-08-22] MEDS ORDERED: METF500T PO (05:52)
[2017-08-22] MEDS ORDERED: HYDR-3516 PO (05:54)
== END 2017-08-22 06:33 | disposition home or self-care (01) ==
LOC: NEPE 01:59
DX: N39.0 Urinary tract infection, site not specified (principal); N20.0 Calculus of kidney; E11.9 Type 2 diabetes mellitus without complications; F12.90 Cannabis use, unspecified, uncomplicated; Z88.2 Allergy status to sulfonamides; Z87.442 Personal history of urinary calculi; Z79.84 Long term (current) use of oral hypoglycemic drugs
CPT/HCPCS: 71045; 80053; 81001; 83690; 85025; 86140; 96365; 96375; 99284; J0696; J1885; J2405; J7030